=== PATIENT | male | born 1945 | race Caucasian/White ===

== ENCOUNTER → 2017-01-13 | Outpatient (CLI) | payer OTHER ==
[2017-01-13 14:57] LABS: CREATININE 1.1 mg/dL (0.7-1.3)
== END ==
LOC: CAT 14:23
PROVIDERS: Ophthalmology
DX: H57.8 Other specified disorders of eye and adnexa (principal)

== ENCOUNTER 2017-02-27 05:42 | Day surgery (SDC) | payer OTHER ==
[~2017-02-27] VITALS: Ht 177.8 cm; Wt 91.6 kg
--- NOTE | ~2017-02-27 | S ---
[facility] [address] [place] [address] SURGICAL PATH RPT PROCEDURE Name: EUSEBIO MIGUEL Room #: DEP [facility]#: [id number] Admission: 02/27/17 Date of : 45 Discharge: 02/27/17 Report #: [id number] Path Case #: [id number] PATHOLOGY REPORT DRAFT COLLECTION DATE: 02/27/2017 RECEIVED DATE: 02/27/2017 SPECIMEN(S) RECEIVED: A.Right orbital mass
--- NOTE | ~2017-02-27 | S ---
[facility] [place] [address] SURGICAL PATH RPT PROCEDURE Name: ZAKI NOVOA Room #: DEP [facility] [place] M.R.#: [id number] Admission: 02/27/17 Date of : 45 Discharge: 02/27/17 Report #: [id number] Path Case #: [id number] PATHOLOGY REPORT COLLECTION DATE: 02/27/2017 RECEIVED DATE: 02/27/2017 SUBMITTING PHYS: Dr. Leon Leavitt OTHER PHYS: Dr. 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 Please see comment. 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 Immunophenotypic studies by flow cytometry reveal kappa restricted B cells lacking CD5, CD10, CD11c and CD23 expression. To confirm flow cytometric findings and characterize the lymphoma cells in a tissue architectural context, immunohistochemical stains are performed with appropriate controls: (Block A1) [facility] [address] [place] [address] SURGICAL PATH RPT PROCEDURE Name: ZAKI NOVOA Room #: DEP [facility]#: [id number] Admission: 02/27/17 Date of : 45 Discharge: 02/27/17 Report #: [id number] Path Case #: [id number] CD20 - Positive BCL2 - Positive CD3 - Highlights T lymphoid cells CD5 - Highlights T lymphoid cells CD43 - Highlights T lymphoid cells BCL6 - Highlights B lymphoid cells within germinal centers CD10 - Highlights B lymphoid cells within germinal centers CD23 - Highlights follicular dendritic meshworks BCL1 - Negative Ki-67 - Approximately 5-10% proliferation fraction [place] and lambda WILBER - [place] light chain restricted Based on the morphology, immunohistochemical staining pattern and flow cytometry, these findings are consistent with involvement by low grade CD5 and CD10 negative B cell lymphoma. 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 The differential diagnosis may also include CD10 negative follicular lymphoma, and lymphoplasmacytic lymphoma. Correlation with clinical findings is recommended. These findgs were discussed with Dr. Leon Leavitt on 03/01/17 at 3:[address] pm[address] Co-reviewed Dr. Andrei Nolen (JMQ:db; 03/01/2017) PATHOLOGIST: Alisa Macias M.D. REPORT ELECTRONICALLY SIGNED BY: Alisa Macias M.D. DATE/TIME: 03/01/2017 23:17 * * * * * * * * * * * * GROSS PATHOLOGY: The specimen is received fresh labeled "Zaki Novoa, right orbital mass" consists of a jacinto piece of tissue measuring 1.0 x 0.[address] Leavitt indicated that he suspected a lymphoma and to send a portion of it for flow. On serial section, there was a well circumscribed nodule measuring 0.3 cm. The specimen was not inked so the tissue does not get contaminated. A portion of the nodule was sent for flow and the rest of the tissue was submitted for permanent section. No frozen section was done. (EDY:; 02/27/2017) CLINICAL HISTORY: Right orbital mass INITIAL CPT CODE(S): A; 53933, 22857, 20642, 20142, 39637, 67708, 18401, 12181, 43721, 33930, 46454, 66064, 86138, 35224, 42530 Professional services performed by [facility] at [facility], [place] [address] SURGICAL PATH RPT PROCEDURE Name: ZAKI NOVOA [facility] [id number] Admission: 02/27/17 Date of : 45 Discharge: 02/27/17 Report #: [id number] Path Case #: [id number] [address] [address]. Technical services performed by [facility] at [address] [place] [address], [place] [address]. [facility] [address] [place] [address] PHONE: [phone] DIRECTOR: Andrade Madera M.D. * * * END OF REPORT * * *
[~2017-02-27 05:42] MED LIST: ASPIRIN325 PO; COUMADIN7.5 MG PO; ENOXAPARIN100 MG/11 SUBQ; IRBESARTAN300 MG PO; LOPRESSOR100 M1 PO; METOPROLOL SUCC50 MG PO; NORVASC5 MG PO; SIMVASTATIN40 MG PO; TOPROL XL100 MG PO; VITAMIN D1000 UNI1 PO
[2017-02-27 12:03] VITALS: BP 150/70
[2017-02-27 12:21] LABS: PROTIME 10.5 Seconds (9.3-11.4)
== END 2017-02-27 14:59 | disposition home or self-care (01) ==
LOC: TBA 05:42 → OR 05:42
PROVIDERS: Ophthalmology
DX: C83.31 Diffuse large B-cell lymphoma, lymph nodes of head, face, and neck (principal); I10 Essential (primary) hypertension; I25.10 Atherosclerotic heart disease of native coronary artery without angina pectoris; I38 Endocarditis, valve unspecified; E78.5 Hyperlipidemia, unspecified; E78.00 Pure hypercholesterolemia, unspecified; K86.1 Other chronic pancreatitis; Z87.442 Personal history of urinary calculi; Z98.890 Other specified postprocedural states; Z95.1 Presence of aortocoronary bypass graft; Z79.01 Long term (current) use of anticoagulants; Z87.891 Personal history of nicotine dependence; Z79.82 Long term (current) use of aspirin; Z79.899 Other long term (current) drug therapy; Z91.040 Latex allergy status
CPT/HCPCS: 50010; 50101; 50386; 50398; 51636; 56527; 56528; 56531; 62110; 62850; 64037; 70005